=== PATIENT | male | born 1995 | race Two or more races ===

== ENCOUNTER 2025-04-21 11:56 | Emergency (ER) | payer BC, OTHER ==
[~2025-04-21] VITALS: Ht 188 cm; Wt 88.1 kg
[2025-04-21 12:28] VITALS: BP 136/81; PULSE 73; RESP 18; TEMP 98.3; O2SAT 94
--- NOTE | 2025-04-21 12:34 | ED.PDOC ---
History of Present Illness EXP HPI Comments 21-year-old male patient presents to the emergency room for a needle stick on the 1st digit of the hand. Patient gave the patient an injection and then accidentally poked himself in the thumb with a needle. There is no bleeding present. Chief Complaint: Post Exposure Time Seen by MD: 12:20 Reviewed Notes: Nurses Notes, Medications, Allergies Allergies: Coded Allergies: NO KNOWN ALLERGIES (Unverified , 04/21/25) Information Source: Patient Mode of Arrival: Ambulatory Physical Exam General Appearance: No Apparent Distress, Normal HEENT: Normal ENT Inspection, Pharynx Normal, TMs Normal Neck: Full Range of Motion, Non-Tender, Normal, Normal Inspection Respiratory: Chest Non-Tender, Lungs Clear, No Accessory Muscle Use, No Respiratory Distress, Normal Breath Sounds Cardiovascular: No Edema, No JVD, No Murmur, No Gallop, Normal Peripheral Pulses, Regular Rate/Rhythm Breast Exam: Deferred Gastrointestinal: No Organomegaly, Non Tender, No Pulsatile Mass, Normal Bowel Sounds, Soft Genitalia: Deferred Pelvic: Deferred Rectal: Deferred Extremities: No calf tenderness, Normal capillary refill, Normal inspection, Normal range of motion, Non-tender, No pedal edema Musculoskeletal : Apperance: Normal Neurologic: Alert, 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 Was a procedure done?: No Differential Diagnosis (EXP) Differential Diagnosis: Needle stick exposure X-Ray, Labs, Meds, VS Vital Signs Date Time Temp Pulse Resp B/P (MAP) Pulse Ox O2 Delivery O2 Flow Rate FiO2 04/21/25 12:28 98.3 73 18 136/81 (99) 94 98.3 04/21/25 12:28 73 18 94 Room Air 04/21/25 11:58 98.3 73 18 136/81 94 98.3 Lab Test 04/21/25 12:30 Range/Units Hepatitis B Surface Antigen Pending Hepatitis B Surface Antibody Pending Hepatitis C Antibody Pending HIV (1&2) Antibody Negative Negative X-Ray, Labs, Meds, VS Comment On re-evaluation patient has symptomatic improvement. Patient is stable for discharge at this time. All test results and diagnostic imaging have been interpreted. All diagnostic findings, discharge care, and education instruction provided to the patient. Follow-up with PCP in 2-3 days Patient verbalized understanding, discharge instructions and agrees to treatment plan Vital signs are stable Patient is ambulatory Patient advised of which symptoms necessitate a return visit to the emergency room. Patient to return emergency room for any new worsening symptoms. Patient is aware that the purpose of this visit is for an acute medical emergen cy requiring emergent stabilization. Chronic conditions, including malignancies have not been ruled out. Patient is instructed to follow up with PCP as directed for continued care and workup. If unable to arrange follow up, patient is to return to the emergency room for reassessment. Patient was given verbal and written discharge instructions and acknowledges understanding Time of 1ST Reevaluation: 12:20 Reevaluation 1ST: Unchanged Patient Education/Counseling: Diagnosis, Treatment, Prognosis Family Education/Counseling: No Family Present Departure 1 Departure Time of Disposition: 12:34 Impression: Primary Impression: Needle stick injury Disposition: HOME / SELF CARE / HOMELESS Condition: Good Discharged With: Self Critical Care Note Critical Care Time?: No Stability Stability form required: No Heart Score Heart Score: Heart Score Response (Comments) Value History N/A 0 EKG N/A 0 Age N/A 0 Risk Factors N/A 0 Troponin N/A 0 Total 0 SHWETHA SHAFFER Apr 21, 2025 12:34
[2025-04-22 09:58] LABS: Hepatitis B Surface Antigen Negative (Negative)
== END 2025-04-21 13:20 | disposition home or self-care (01) ==
LOC: ER 11:56
DX: Z77.21 Contact with and (suspected) exposure to potentially hazardous body fluids (principal); W46.0XXA Contact with hypodermic needle, initial encounter; Y93.89 Activity, other specified; Y92.89 Other specified places as the place of occurrence of the external cause; Y99.0 Civilian activity done for income or pay
CPT/HCPCS: 36415; 86703; 86706; 86803; 87340